=== PATIENT | female | born 1990 | race Caucasian/White ===

== ENCOUNTER 2017-12-25 02:47 | Emergency (ER) | payer OTHER ==
[~2017-12-25] VITALS: Ht 152.4 cm; Wt 59.0 kg
[2017-12-25 02:51] VITALS: BP 110/76
--- NOTE | 2017-12-25 02:51 | NUR ---
TO BED # 4 AMB, REPORT GIVEN TO ORQUIDEA RAMÍREZ
--- NOTE | 2017-12-25 02:55 | NUR ---
PT PRESENTS TO ED WITH BILAT LOWER ABD PAIN WITH N/V X12 HRS. PT STATES DEEP CONSTANT ACHE PAIN 6/10. PT DENIES BURNING WITH URINATION OR VAGINAL DISCHARGE. VSS. A&OX4. POSITIONED IN BED FOR COMFORT WITH VSS. ER MD AWARE. CONTINUE TO MONITOR.
--- NOTE | 2017-12-25 02:55 | NUR ---
Lawson andrews in [facility] - 12/25/17 at 0255 by ANALY PT TAKEN TO BED 4
--- NOTE | 2017-12-25 03:14 | NUR ---
Dr. Alvarez evaluating patient at bedside.
[2017-12-25] MEDS ORDERED: NACL 0.9% 1,000 ML IV SCH (03:19)
[2017-12-25] MEDS ORDERED: KETOROLAC 30 MG/ML VIAL IVP ONE (03:20)
[2017-12-25] MEDS ORDERED: ONDANSETRON 4 MG/2 ML VIAL IVP ONE ×2 (03:20→04:30)
[2017-12-25 03:44] LABS: APPEARANCE,URINE SL CLOUDY (CLEAR); BILIRUBIN,URINE NEGATIVE (NEGATIVE); BLOOD, URINE 1+ (NEGATIVE); COLOR,URINE YELLOW (YELLOW); LEUKOCYTE ESTERASE ,URINE 1+ (NEGATIVE); NITRITE, URINE NEGATIVE (NEGATIVE); UGLUCOSE NEGATIVE (NEGATIVE)
[2017-12-25 03:48] LABS: ANION GAP 13.7 (8-16); CARBON DIOXIDE 22.4 mmol/L (21-32); CREATININE 0.6 mg/dL (0.6-1.3); POTASSIUM 4.1 mmol/L (3.5-5.1)
[2017-12-25 03:50] LABS: BASOPHILS # (AUTO) 0.1 K/uL (0.00-0.22); BASOPHILS % (AUTO) 0.9 % (0.0-2.0); EOSINOPHILS # (AUTO) 0.3 K/uL (0-0.4); EOSINOPHILS % (AUTO) 2.8 % (0.0-4.0); HEMATOCRIT 43.1 % (36-48); HEMOGLOBIN 14.8 g/dL (12.0-16.0); LYMPHOCYTES # (AUTO) 1.5 K/uL (2.5-16.5); LYMPHOCYTES % (AUTO) 15.4 % (20.5-51.1); MEAN CORPUSCULAR HEMOGLOBIN 30 pg (27-31); MEAN CORPUSCULAR HGB CONC 34 g/dL (33-37); MEAN CORPUSCULAR VOLUME 88.4 fL (80-94); MONOCYTES # (AUTO) 0.5 K/uL (0.8-1.0); MONOCYTES % (AUTO) 5.1 % (1.7-9.3); NEUTROPHILS # (AUTO) 7.6 K/uL (1.8-7.7); NEUTROPHILS % (AUTO) 75.8 % (42.2-75.2); PLATELET COUNT (AUTO) 349 K/uL (140-450); RED BLOOD CELL COUNT(AUTO) 4.87 MIL/uL (4.20-5.40); RED CELL DISTRIBUTION WIDTH 13.3 % (11.6-13.7); WHITE BLOOD COUNT (AUTO) 10.1 K/uL (4.8-10.8)
--- NOTE | 2017-12-25 03:50 | NUR ---
PT TAKEN TO CT
[2017-12-25 03:55] LABS: ALBUMIN 4.7 g/dL (3.4-5.0); TOTAL BILIRUBIN 0.5 mg/dL (0.0-1.0)
[2017-12-25 03:59] LABS: RBC,URINE 11-20 (MOD) /HPF (0-5)
--- NOTE | 2017-12-25 04:00 | NUR ---
PT IN BED RESTING WITH EYES CLOSED. VSS. ER MD AWARE. CONTINUE TO MONITOR.
--- NOTE | 2017-12-25 05:00 | NUR ---
PT IN BED RESTING WITH EYES CLOSED. VSS. ER MD AWARE. CONTINUE TO MONITOR.
--- NOTE | 2017-12-25 06:00 | NUR ---
PT IN BED RESTING WITH EYES CLOSED. VSS. ER MD AWARE. CONTINUE TO MONITOR.
--- NOTE | 2017-12-25 06:30 | NUR ---
AWAITING DISCHARGE ORDERS FROM DR QUINTANA.
--- NOTE | 2017-12-25 07:00 | NUR ---
REPORT GIVEN TO LAZARO CHEN VSS.
[2017-12-25 07:24] VITALS: BP 115/72
--- NOTE | 2017-12-25 07:24 | NUR ---
DPatient discharged with v/s stable. Written and verbal after care instructions given and explained. Patient alert, oriented and verbalized understanding of instructions. Ambulatory with steady gait. All questions addressed prior to discharge. ID band removed. Patient advised to follow up with PMD. Rx of PEPCID&ZOFRAN given. Patient educated on indication of medication including possible reaction and side effects. Opportunity to ask questions provided and answered.
== END 2017-12-25 07:24 | disposition home or self-care (01) ==
LOC: MED 02:47
DX: R10.9 Unspecified abdominal pain (principal)
CPT/HCPCS: 36415; 74176; 76856; 80053; 81001; 81025; 83690; 85025; 87086; 96361; 96374; 96375; 96376; 99285; J1885; J2405; J7030